=== PATIENT | female | born 1940 | race Caucasian/White ===

== ENCOUNTER 2016-10-16 13:45 | Inpatient (IN) | payer MEDICARE, MEDICAID ==
[2016-10-16] MEDS ORDERED: MORPHINE 4 MG/ML INJECTION IV ONE ×2 (13:54→15:34)
[2016-10-16] MEDS ORDERED: ONDANSETRON HCL 4 MG/2 ML VIAL IV ONE (13:54)
[2016-10-16 14:06] LABS: AUTOMATED BASOPHIL 0.3 % (0-2); AUTOMATED EOSINOPHIL 0.5 % (0-5); AUTOMATED LYMPH 10.7 % (17-44); AUTOMATED MONOCYTE 4.6 % (3-10); AUTOMATED NEUTROPHIL 83.9 % (45-76)
[2016-10-16 14:13] LABS: BLOOD UREA NITROGEN 12 MG/DL (7-17); CALCULATED OSMOLALITY 267 MOs/Kg (270-290); CHLORIDE 102 mEq/L (98-107); CPK TOTAL WITH POSSIBLE MB 79 IU/L (30-134); GLUCOSE 112 MG/DL (70-99); SODIUM LEVEL 138 mEq/L (137-146); TOTAL PROTEIN 7.2 G/DL (6.3-8.2)
--- NOTE | 2016-10-16 14:13 | EDPRACDOC ---
- General Chief Complaint: Fall Stated Complaint: FALL Time Seen by Provider: 10/16/16 13:51 Information Source: Patient - History of Present Illness Onset: ship captain HPI: PT WAS WALKING TO HER NEIGHBOR'S HOUSE ON ICE IN [place] WHEN SHE SLIPPED AND FELL. SHE C/O LEFT HIP PAIN. SHE DENIES ANY OTHER INJURIES. Pain Severity: Reports: Moderate Injuries/Pain Location: Reports: lower extremity Reason for Fall: Reports: slipped Loss of Consciousness: no loss of consciousness Associated Symptoms (Fall): Reports: denies symptoms Allergies/Adverse Reactions: Allergies aspirin Allergy (Verified 10/16/16 14:17) Dizziness Home Medications: Ambulatory Orders No Home Medications 10/16/16 ED Past Medical History - History Reviewed No Past Medical History: Yes Patient has no past medical history - Patient Medical History Psychological History: Denies: Depression Surgical History: Reports: No Significant History - Social Medical History Smoking Status: Former smoker ETOH: None Substance Abuse: None EDM Review of Systems - Review of Systems ROS Negative Except as Marked: Yes All systems reviewed and were negative except as marked Musculoskeletal: Hip - Physical Exam Constitutional: Alert (Awake), No apparent distress Oriented to: Time, Person, Place Last recorded Vital Signs: Last Vital Signs Temp 97.7 F 10/16/16 13:46 Pulse 101 10/16/16 13:46 Resp 18 10/16/16 13:46 BP 178/81 10/16/16 13:46 Pulse Ox 97 10/16/16 13:46 Oxygen Pulse Oxygen Saturation 97 O2 Device Room Air Oxygen Flow Rate Fraction of Inspired Oxygen ( FIO2) - HEENT Head: Normal ( normocephalic) Eye Exam: Normal (PERRL, EOMI, Sclera white) Oropharynx: Normal (Pharynx:Moist without exudate,Gums-no swelling) ENT EAC: Normal TMJ: Normal Nose: No Symptoms Reported (septum midline) Neck: Normal (FROM, trachea at midline) - Respiratory/Cardiovascular Respiratory: Normal - CTA (BBS clear to auscultation without adventitious sounds ) Cardiovascular: Normal (RRR without murmur, gallop or rub) - GI Auscultation: Normal (NABS) Palpation: Normal (Soft,No rebound or guarding, non distended) Tenderness: Non tender Marroquin's Sign: Negative - Musculoskeletal Back: Normal (Non-Tender) Extremities: Normal (Normal tone, Pulses 2+ No cyanosis or edema, FROM) Musculoskeletal Comment: LEFT HIP TENDERNESS - Integumentary Skin: Normal, Warm, Dry Lymphatics: Normal (no adenopathy) - Neurologic Memory Impaired: Normal Motor Function: Normal (Normal tone, Pulses 2+ No cyanosis or edema, FROM) Cranial Nerve: Normal (CN II-X11 intact sensation, strength 5/5) Cerebellar: Normal Mood Description: Normal Perception: Normal - Results 10/16/16 13:50 10/16/16 13:50 WBC 11.4 xk/uL (3.8-10.8) H 10/16/16 13:50 RBC 4.41 xM/uL (4.20-5.40) 10/16/16 13:50 Hgb 13.2 g/dL (12.0-16.0) 10/16/16 13:50 Hct 39.9 % (36-47) 10/16/16 13:50 MCV 90 fL (81-99) 10/16/16 13:50 MCH 30.0 pg (27-32) 10/16/16 13:50 MCHC 33.2 g/dl (33-36) 10/16/16 13:50 RDW 13.5 % (11.5-14.5) 10/16/16 13:50 Plt Count 210 xk/uL (130-400) 10/16/16 13:50 MPV 9.0 fL (7.4-10.4) 10/16/16 13:50 Neut % (Auto) 83.9 % (45-76) H 10/16/16 13:50 Lymph % (Auto) 10.7 % (17-44) L 10/16/16 13:50 [place] % (Auto) 4.6 % (3-10) 10/16/16 13:50 Eos % (Auto) 0.5 % (0-5) 10/16/16 13:50 Baso % (Auto) 0.3 % (0-2) 10/16/16 13:50 Absolute Neuts (auto) 9.46 xk/uL (1.7-8.2) H 10/16/16 13:50 Absolute Lymphs (auto) 1.14 xk/uL (0.65-4.75) 10/16/16 13:50 Lab Results 10/16/16 13:50 WBC 11.4 H RBC 4.41 Hgb 13.2 Hct 39.9 MCV 90 MCH 30.0 MCHC 33.2 RDW 13.5 Plt Count 210 MPV 9.0 Neut % (Auto) 83.9 H Lymph % (Auto) 10.7 L [place] % (Auto) 4.6 Eos % (Auto) 0.5 Baso % (Auto) 0.3 Absolute Neuts (auto) 9.46 H Absolute Lymphs (auto) 1.14 - EKG EKG #1 EKG Time: 13:46 -: Yes EKG interpreted by me Rate: bpm: 96 [place]: Normal Rhythm: NSR Block: None Hypertrophy: None ST: Normal Comparison: 07/25/09 - Diagnostic Imaging Hip Image interpreted by: Radiologist Displaced left femoral neck fracture. Pelvis Image interpreted by: Radiologist Displaced left femoral neck fracture. Chest Image interpreted by: Radiologist There are chronic bronchitic changes. There is no evidence of acute thoracic trauma. If the patient's chest wall discomfort warrants further evaluation, a rib series would be a useful next imaging step. - Departure Yes I personally saw and evaluated the patient. Disposition: Admit IP To This Hospital Condition: Fair Final Diagnosis: Accidental fall, Left displaced femoral neck fracture Education/Counseling Given To: Patient Education/Counseling Given Regarding: Diagnosis, Treatment, Follow Up Decision to Admit Time: 15:01 Decision to admit date: 10/16/16 Decision to admit: from ED - Physician Consulted Hospitalist Provider Called: Zohaib [facility] Provider Called: John Delgadillo
[2016-10-16 14:17] LABS: PT-INR 1.1
[2016-10-16 14:31] LABS: LEUKOCYTES/URINE NEG (NEGATIVE); NITRITE/URINE NEG (NEGATIVE); RBC/URINE 0-2 (0-5); URINE OCCULT BLOOD 1+ (NEG/TRACE); WBC/URINE 0-2 (0-5)
--- NOTE | 2016-10-16 14:43 | DIRPT ---
CLINICAL DATA: Fell today and injured left hip. EXAM: BILATERAL HIP (WITH PELVIS) 3-4 VIEWS; LEFT FEMUR - 2 VIEW COMPARISON: None. FINDINGS: Pelvis/hips: There is a displaced left femoral neck fracture. The right hip is normal. The pubic symphysis and SI joints are intact. No pelvic fractures. Left femur: No femoral shaft fracture is identified. IMPRESSION: Displaced left femoral neck fracture. Electronically Signed By: Rae Portillo M.D. On: 10/16/2016 14:41
--- NOTE | 2016-10-16 14:43 | DIRPT ---
CLINICAL DATA: Status post fall on slippery surface today striking the left side EXAM: CHEST 1 VIEW COMPARISON: None in PACs FINDINGS: The lungs are well-expanded. There is no focal infiltrate. There is no pleural effusion or pneumothorax. The interstitial markings are mildly prominent bilaterally. The heart and pulmonary vascularity are normal. The mediastinum is normal in width. The observed portions of the bony thorax exhibit no acute abnormalities. IMPRESSION: There are chronic bronchitic changes. There is no evidence of acute thoracic trauma. If the patient's chest wall discomfort warrants further evaluation, a rib series would be a useful next imaging step. Electronically Signed By: Gautam Jane M.D. On: 10/16/2016 14:41
[2016-10-16] MEDS ORDERED: ONDANSETRON HCL 4 MG/2 ML VIAL IV PRN (16:02)
[2016-10-16] MEDS ORDERED: Docusate Sodium 100 MG CAP PO PRN (16:02)
[2016-10-16] MEDS ORDERED: ZOLPIDEM TARTRATE 5 MG TAB PO PRN (16:02)
[2016-10-16] MEDS ORDERED: ACETAMINOPHEN 650 MG SUPP PR PRN (16:02)
[2016-10-16] MEDS ORDERED: MAGNESIUM HYDROXIDE 30 ML BOTTLE PO PRN (16:02)
[2016-10-16] MEDS ORDERED: ACETAMINOPHEN 325 MG/TAB TABLET PO PRN (16:02)
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
[2016-10-16] MEDS ORDERED: MORPHINE 2 MG/ML INJECTION IV PRN (16:06)
--- NOTE | 2016-10-16 18:36 | PCM.ORTHCO ---
Consultation Date: 10/16/16 Requesting Physician: Joel [facility] Specialist: Vahid Tom Reason for Consult: Fracture (Left hip) - History of Present Illness 76-year-old otherwise healthy active female who ambulates without assistance presents status post mechanical fall after slipping on ice this afternoon. Patient was attempting to walk to her neighbor's when she slipped on ice falling on her left hip. Patient was unable to ambulate after injury and was brought to the ER. X-rays reveal left hip femoral neck fracture with displacement. Medicine was asked for admission and Orthopedics was consulted for surgical management. Patient is resting comfortably at bedside with mild left hip pain. She denies any loss of consciousness. She denies any fevers, chills, numbness, or tingling. Chief Complaint: left hip fracture - Past Medical and Surgical History Cardiac History: Reports: No Significant History Respiratory History: Reports: No Significant History GI/ History: Reports: No Significant History Systemic History: Reports: No Significant History Musculoskeletal History: Reports: No Significant History Psychological History: Reports: No Significant History. Denies: Depression Neurological History: Reports: No Significant History Past Surgical History: Reports: No Significant History Allergies aspirin Allergy (Verified 10/16/16 14:17) Dizziness Home Medications No Home Medications 10/16/16 - Social History Smoking Status: Former smoker - Family History Reports: No Significant History - Review of Systems Musculoskeletal:: Joint Pain (left hip) - Physical Exam Vital Signs: Initial Vitals Temperature 97.7 F 10/16/16 13:46 Pulse Rate 101 10/16/16 13:46 Respiratory Rate 18 10/16/16 13:46 Blood Pressure 178/81 10/16/16 13:46 Pulse Oxygen Saturation 97 10/16/16 13:46 Constitutional: No apparent distress, Alert, Well appearing Oriented to: Time, Person, Place - HEENT Head: Normal Oropharynx: Normal Nose: No Symptoms Reported - Musculoskeletal Extremities: Pedal Pulse Left hip: Mild shortening and external rotation of the left lower extremity with intact pedal pulses. Sensation intact to light touch throughout left lower extremity including saphenous, sural, femoral, and peroneal. Active range of motion of 1st through 5th digits with plantar flexion dorsiflexion intact at the ankle. No tenderness in the left lower extremity below the knee with no knee effusion. Tenderness in the left lateral hip and groin area. Pain with log roll. Right lower extremity without deformity and full range of motion of extremity. - Lab Results Laboratory Results - last 24 hr 10/16/16 10/16/16 10/16/16 13:50 13:50 13:50 WBC 11.4 H RBC 4.41 Hgb 13.2 Hct 39.9 MCV 90 MCH 30.0 MCHC 33.2 RDW 13.5 Plt Count 210 MPV 9.0 Neut % (Auto) 83.9 H Lymph % (Auto) 10.7 L [place] % (Auto) 4.6 Eos % (Auto) 0.5 Baso % (Auto) 0.3 Absolute Neuts (auto) 9.46 H Absolute Lymphs (auto) 1.14 PT INR APTT Sodium 138 Potassium 3.7 Chloride 102 Carbon Dioxide 27 Anion Gap 13 BUN 12 Creatinine 0.50 L Estimated GFR (MDRD) > 60 Glucose 112 H Calculated Osmolality 267 L Calcium 9.0 Total Bilirubin 0.5 AST 30 ALT 36 Alkaline Phosphatase 59 Creatine Kinase 79 Troponin I < 0.01 Total Protein 7.2 Albumin 4.2 Urine Color Urine Clarity Urine pH Ur Specific [place] Urine Protein Urine Glucose (UA) Urine Ketones Urine Occult Blood Urine Nitrite Urine Bilirubin Urine Urobilinogen Ur Leukocyte Esterase Urine RBC Urine WBC Ur Epithelial Cells Urine Bacteria Urine Mucus Blood Type A POSITIVE Antibody Screen Negative 10/16/16 10/16/16 10/16/16 13:50 14:05 17:55 WBC RBC Hgb Hct MCV MCH MCHC RDW Plt Count MPV Neut % (Auto) Lymph % (Auto) [place] % (Auto) Eos % (Auto) Baso % (Auto) Absolute Neuts (auto) Absolute Lymphs (auto) PT 10.8 INR 1.1 APTT 23.0 Sodium Potassium Chloride Carbon Dioxide Anion Gap BUN Creatinine Estimated GFR (MDRD) Glucose Calculated Osmolality Calcium Total Bilirubin AST ALT Alkaline Phosphatase Creatine Kinase Troponin I < 0.01 Total Protein Albumin Urine Color Yellow Urine Clarity Clear Urine pH 6.0 Ur Specific [place] 1.010 Urine Protein Neg Urine Glucose (UA) Neg Urine Ketones Neg Urine Occult Blood 1+ H Urine Nitrite Neg Urine Bilirubin Neg Urine Urobilinogen <2.0 Ur Leukocyte Esterase Neg Urine RBC 0-2 Urine WBC 0-2 Ur Epithelial Cells 2+ Urine Bacteria 1+ H Urine Mucus Occ Blood Type Antibody Screen - Diagnostic Findings Left hip and femur x-rays were reviewed revealing displaced left femoral neck fracture. - Assessment/Plan (1) Left displaced femoral neck fracture S72.002A - FRACTURE OF UNSP PART OF NECK OF LEFT FEMUR, INIT Acute Present on Admission: Yes Case Care Discussed with: Patient, Family Plan: 76-year-old household ambulator presents status post mechanical fall today after slipping on ice. Patient sustained a left femoral neck fracture with displacement. Medicine admitted patient with Dr. Delgadillo consult of orthopedic surgical management. Plan per Dr. Delgadillo will be left hip hemiarthroplasty tomorrow. Patient will be NPO after midnight and consented for left hip hemiarthroplasty. Risks were reviewed with patient and family member at bedside including risk for nerve or vessel injury, DVT, anesthesia, , infection, and dislocation. No guarantees were stated or implied patient agrees with the above plan. Continue pain control, bed rest, and ice to left hip.
[2016-10-16] MEDS ORDERED: Vaccine Screening Complete SCH (19:00)
[2016-10-16] MEDS: NS/KCl 20 mEq 1,000 ML IV SCH (21:04)
[2016-10-17] MEDS: NS/KCl 20 mEq 1,000 ML IV SCH ×4 (03:42→20:46)
[2016-10-17] MEDS ORDERED: CEFAZOLIN 1 GM VIAL IV ONE (07:00)
[2016-10-17 07:21] LABS: MPV 8.9 fL (7.4-10.4)
[2016-10-17 07:37] LABS: BLOOD UREA NITROGEN 11 MG/DL (7-17); CALCIUM 8.6 MG/DL (8.4-10.2); CALCULATED OSMOLALITY 268 MOs/Kg (270-290); CHLORIDE 104 mEq/L (98-107); GLUCOSE 113 MG/DL (70-99); SODIUM LEVEL 139 mEq/L (137-146)
[2016-10-17] MEDS ORDERED: KETOROLAC TROMETH 30 MG/ML VIAL IM ONE (10:00)
[2016-10-17] MEDS ORDERED: PROPOFOL 200 MG/20 ML VIAL IV ONE (10:00)
[2016-10-17] MEDS ORDERED: MIDAZOLAM 2 MG/2 ML VIAL IV ONE (10:00)
[2016-10-17] MEDS ORDERED: LIDOCAINE 4% 5 ML AMPULE NEB ONE (10:00)
[2016-10-17] MEDS ORDERED: DEXAMETHASONE 4 MG/ML VIAL IV ONE (10:00)
[2016-10-17] MEDS ORDERED: ONDANSETRON HCL 4 MG/2 ML VIAL IV ONE (10:00)
[2016-10-17] MEDS ORDERED: MORPHINE 10 MG/ML INJECTION IM ONE (10:00)
[2016-10-17] MEDS ORDERED: FENTANYL 100 MCG/2 ML VIAL IV ONE (10:00)
[2016-10-17] MEDS ORDERED: FENTANYL 100 MCG/2 ML VIAL IV PRN ×2 (11:36)
[2016-10-17] MEDS ORDERED: PROMETHAZINE 25 MG/ML VIAL IV PRN (11:36)
[2016-10-17] MEDS ORDERED: ONDANSETRON HCL 4 MG ODT TAB PO PRN (11:36)
[2016-10-17] MEDS ORDERED: ONDANSETRON HCL 4 MG/2 ML VIAL IV PRN (11:36)
[2016-10-17] MEDS ORDERED: MEPERIDINE 25 MG/ML TUBEX IV PRN (11:36)
[2016-10-17] MEDS ORDERED: hydrALAZINE 20 MG/ML VIAL IV PRN (11:36)
[2016-10-17] MEDS ORDERED: HYDROmorphone 1 MG INJECTION IV PRN ×2 (11:36)
[2016-10-17] MEDS ORDERED: LABETALOL 20 MG/4 ML SYRINGE IV PRN (11:36)
--- NOTE | 2016-10-17 11:37 | SC.ANESPOS ---
Post-Anesthesia Note LOC: [place] [facility] Calling Post-Anesthesia Assessment: Awake, Returned to Baseline, Hemodynamically Stable , Pain Control Adequate Phase I & II Recovery Complete: Yes Apparent Anesthesia Complication: No : N - Vital Signs Blood Pressure: 139/64 Pulse: 86 Resp Rate: 18 O2 Sat: 93 Temp: 98.5 F
--- NOTE | 2016-10-17 11:53 | HIM.ANES ---
Anesthesia Evaluation & Plan - Focused Review of Systems No Past Medical History: Yes Patient has no past medical history Cardiac History: No: Hx Cardiac Disorders HEENT: Yes: Hx Hearing Impairment Gastrointestinal: No: Hx Gastrointestinal Disorders Neurological/Musculoskeletal: No: Hx Neurological Disorders Psychological: No Hx Depression, No Hx Mental/Emotional Disorders Blood/Autoimmune: No: Hx AIDS, Hx Hepatitis (type) Smoking Status: Former smoker Past Social History: Denies: Alcohol Use Alcohol use: None Hx Stress Test (date): No Hx Echocardiogram (date): No Hx Chest Xray (date): Yes - Focused Physical Exam NPO since: Mallampati: Class II Thyromental Distance: Greater than 3 Neck: Full Range of Motion Dental: Edentulous, Other (Irregular tooth stumps remain) Cardiovascular/Chest: Normal Respiratory: Lungs clear Any problems with anesthesia, including nausea and vomiting?: No Any relatives with a history of Malignant Hyperthermia?: No Does patient have a history of Malignant Hyperthermia?: No Beta Tan given (if appropriate): N/A Other: Problem List Problem Status Onset Accidental fall Acute Hypertension Acute Left displaced femoral neck fracture Acute Left hip pain Acute PT/PTT/INR/ PT 10.8 SEC (9.2-11.2) 10/16/16 13:50 INR 1.1 10/16/16 13:50 APTT 23.0 SEC (22-35) 10/16/16 13:50 CBC/BMP/Other 10/17/16 06:41 10/17/16 06:41 Allergies Allergy/AdvReac Type Severity Reaction Status Date / Time aspirin Allergy Dizziness Verified 10/16/16 14:17 Home Medications Medication Instructions Recorded Last Taken Type No Home Medications 10/16/16 Unknown History Height and Weight Patient's height 5 ft 5 in Patient's weight 118 lb 6.4 oz Weight (Calculated Kilograms) 53.705 BMI 19.7 Vital Signs Temperature 98.5 F 10/17/16 11:37 Pulse Rate 86 10/17/16 11:37 Respiratory Rate 18 10/17/16 11:37 Blood Pressure 139/64 10/17/16 11:37 Pulse Oxygen Saturation 93 10/17/16 11:37 - Anesthetic Plan Anesthesia Type: General ASA Class: 2 -: I have examined this patient and reviewed the medical record. The patient has been assessed prior to anesthesia. Risks and benefits of anesthesia and anesthetic technique options have been discussed and all questions answered. The patient accepts the risk and desires me to proceed with the planned anesthetic.
[2016-10-17] MEDS ORDERED: BUPIVACAINE 0.5% 30 ML VIAL ONE (12:17)
[2016-10-17] MEDS ORDERED: LIDOCAINE 1% 30 ML VIAL (PRESERVATIVE FREE) ONE (12:17)
[2016-10-17] MEDS: VANCOMYCIN 1,000 MG VIAL INSTILL ONE ×2 (13:15→16:12)
--- NOTE | 2016-10-17 13:24 | HIMOPRPT ---
DATE OF PROCEDURE: 10/17/16 PREOPERATIVE DIAGNOSIS: Displaced femoral neck fracture of left hip. POSTOPERATIVE DIAGNOSIS: Displaced femoral neck left hip. OPERATION: Left hip hemiarthroplasty. SURGEON: John Delgadillo MD DRAFTER (CAD) ELECTRICAL: MIGUEL Parada ANESTHESIA: General endotracheal anesthesia DRAINS: None. COMPLICATIONS: None. IMPLANTS: Synthetic Substitute Metal Janie - Titanium Stem non-cemented size 7 - Head Stainless Steel bipolar 47 mm, -4 mm diameter DISPOSITION: Stable to recovery. ESTIMATED BLOOD LOSS: 100 mL. BRIEF HISTORY: The patient is a 76 years old F with a history of fall. Patient sustained a displaced left femoral neck fracture. Left hip hemiarthroplasty was recommended. Patient understood that the risks involved in surgery include but are not limited to infection, damage to the nerve, blood vessel, recurrent dislocation, need for further surgery, continued pain, implant failure, DVT, pulmonary embolism, stroke and even . Patient was also explained the requirement of adherence to postoperative protocol. KEELY RAMIREZ showed understanding and willingness to proceed. Patient volunteered an informed consent. PROCEDURE IN DETAIL: KEELY RAMIREZ was identified in the preop area. The surgical side was confirmed with the patient and marked on the skin. Patient was then returned back into the operating room. Patient was placed supine on the operating table. Spinal anesthesia was administered. Proper timeout was performed confirming the identity of the patient as well as the site of the surgery. 2 g of IV Ancef were given preoperatively within 30 min. of the surgical incision. All the bony prominences were adequately padded. The surgical area was sealed off with plastic drapes. The surgical area was scrubbed with alcohol and Betadine and finally prepped with ChloraPrep. [place] full body gowns were used. Direct anterior approach was used. This surgical incision lateral and distal to the anterior superior iliac spine was made extending distally 4 inches.Skin and the fascia was incised. Bovie was used for deeper dissection. Tensor fascia anila was identified . The fascia of the tensor fascia anila was incised. The muscle belly of TFL was retracted laterally. The fascia between the sartorius and TFL was incised. Branches of the circumflex femoral vessels were cauterized. Curved Cobra retractors were placed superior and inferior to the neck. An interval was then created between the anterior hip capsule and hip flexors. An anterior cobra retractor was placed above the pelvic brim. A Tshaped capsular incision was made in the anterior capsule with the base of the T laterally along the intertrochanteric line. Anterior capsulectomy was performed. The cyst. An inferior retractors were repositioned inside the capsule. A napkin ringed osteotomy was made in the femoral neck. The femoral head was retrieved and measured 47 mm . We then proceeded with the preparation of the proximal femur for the implantation of the femoral stem. Posterior superior capsules was resected for release of proximal femur. The operated leg was abducted assisted with the break in the table. External rotation of the extremity was utilized. Proximal femur was delivered laterally and proximally. Progressive reaming of the femoral canal was performed up to size 7 . We then trialed with a different size neck options. The hip was carried through full flexion, adduction and internal rotation without any dislocation. Bilateral lower extremity lengths as palpated from anterior superior iliac spine to the medial malleolus were comparable bilaterally. We found adequate stability with standard size neck, 47 mm bipolar head. The trial components were removed. The wound was copiously irrigated with normal saline. We implanted a size 7 noncemented stem, with 47,-4 mm bipolar head. Hip was again carried through range of motion and stability was satisfactory in flexion, adduction and internal and external rotation. The hip joint was irrigated with copious amount of sterile saline solution. Also prior to closure of the capsule was injected with Exparel, which was also injected into the surrounding soft tissues. The fascia of the tensor fascia anila was closed with 2-0 Vicryl. The subcutaneous tissue was reapproximated with Vicryl and skin was closed with mackenzie. The patient was extubated and taken to the recovery room in stable condition. KEELY tolerated the procedure well without immediate complications. DISPOSITION: Patient would be admitted to the orthopedic service. Patient will be weightbearing as tolerated on bilateral lower extremities. Patient will be started on aspirin 325 mg twice daily for DVT prophylaxis. Patient will have mechanical prophylaxis with intermittent compression devices while in bed.
[2016-10-17] MEDS ORDERED: CEFAZOLIN 1 GM in D5W 100 ML IV SCH (14:00)
[2016-10-17] MEDS: Cefazolin 1gm/50 ml D5W 1 GM/50 ML RTU IV SCH ×2 (14:52→20:46)
--- NOTE | 2016-10-17 15:55 | GENMEDPROG ---
Chief Complaint: Feels well. Sitting up in bed with no complaints. Denies pain at present. Tolerated surgery without difficulty. Notes Reviewed: Yes Events from last night noted and discussed with Clinical Staff Current Medication List: Reviewed Currently: Denies: Cough, Wheezing, GAGNON, SOB, Nausea and Vomiting, Abdominal Pain, Chest Pain - Physical Examination Vital Signs and I&O: Last Vital Signs Temp 99.8 F 10/17/16 13:34 Pulse 83 10/17/16 15:05 Resp 18 10/17/16 15:05 BP 116/73 10/17/16 15:05 Pulse Ox 92 10/17/16 15:05 Oxygen Pulse Oxygen Saturation 92 O2 Device Room Air Oxygen Flow Rate 6 Fraction of Inspired Oxygen ( 100 FIO2) Intake & Output 10/14/16 10/15/16 10/16/16 10/17/16 23:59 23:59 23:59 23:59 Intake Total 196 902 Output Total 250 1250 Balance -54 -348 Patient's weight 53.705 kg General: Alert, Oriented x3, Cooperative, No acute distress, Well appearing, Well nourished HEENT: Normal, PERRLA, EOMI, Anicteric Sclera Neck: Non-tender, Full range of motion, Normal Trachea alignment, Normal inspection. negative: JVD Lymphatics: Normal (no adenopathy). negative: Adenopathy Respiratory: Normal - CTA (BBS clear to auscultation without adventitious sounds ) Cardiovascular: Regular rate and rhythm, No Gallops,Rubs/Murmurs GI: Normal bowel sounds, Soft, Non tender, No hepatospenomegaly Extremities/Musculoskeletal: Normal pulses. negative: Tenderness, Swelling, Edema Skin: Warm,Dry and Intact, No rashes, No breakdown Neurological: Normal speech, Strength at 5/5 X4 ext, Normal tone, Cranial nerves 3-12 NL Psych/Mental Status: Appropriate, Normal Affect, Cooperative Lab/DI/Studies Reviewed: Laboratory Results - last 24 hr 10/16/16 10/16/16 10/16/16 13:50 17:55 21:25 WBC RBC Hgb Hct MCV MCH MCHC RDW Plt Count MPV Sodium Potassium Chloride Carbon Dioxide Anion Gap BUN Creatinine Estimated GFR (MDRD) Glucose Calculated Osmolality Calcium Troponin I < 0.01 < 0.01 Vitamin D 25-Hydroxy 17.3 L 10/17/16 10/17/16 06:41 06:41 WBC 9.8 RBC 4.02 L Hgb 12.2 Hct 36.6 MCV 91 MCH 30.3 MCHC 33.3 RDW 13.7 Plt Count 168 MPV 8.9 Sodium 139 Potassium 4.2 Chloride 104 Carbon Dioxide 28 Anion Gap 11 BUN 11 Creatinine 0.50 L Estimated GFR (MDRD) > 60 Glucose 113 H Calculated Osmolality 268 L Calcium 8.6 Troponin I Vitamin D 25-Hydroxy - Assessment (1) Left displaced femoral neck fracture Acute S72.002A - FRACTURE OF UNSP PART OF NECK OF LEFT FEMUR, INIT Comment/ Plan: Doing well postop. Minimal pain currently. No chest pain or shortness of breath. Physical therapy and increase activity as tolerated. Pain control with morphine. (2) Accidental fall Acute W19.XXXA - UNSPECIFIED FALL, INITIAL ENCOUNTER Comment/Plan: Slipped on the ice while wearing Crocs (3) Hypertension Acute I10 - ESSENTIAL (PRIMARY) HYPERTENSION Qualifiers: Hypertension type: essential hypertension Qualified Code(s): I10 - Essential (primary) hypertension Comment/Plan: Likely related to pain. P.r.n. analgesics and monitor. Has been improving here in the emergency room (4) Left hip pain Acute M25.552 - PAIN IN LEFT HIP Comment/Plan: P.r.n. morphine. Case Care Discussed with: Patient, Nursing Staff, Resource Management
[2016-10-17] MEDS: ENOXAPARIN 40 MG/0.4 ML PFS SQ SCH (17:35)
[2016-10-18] MEDS: NS/KCl 20 mEq 1,000 ML IV SCH ×3 (02:26→13:30)
[2016-10-18] MEDS: OXYCODONE HCL 5 MG TABLET PO PRN ×4 (03:49→20:15)
[2016-10-18] MEDS: Cefazolin 1gm/50 ml D5W 1 GM/50 ML RTU IV SCH (04:36)
--- NOTE | 2016-10-18 06:20 | PCM.ORTHBL ---
- Subjective Post Op Day: 1 Daily Assessment - Patient: Reports: No new complaints, Feels better, Pain is less, Tolerating Regular Diet, Voiding without difficulty, Afebrile, Ambulating with Physical Therapist, Other (Denies chest pain). Denies: Difficulty Swallowing, Shortness of breath, Nausea, Vomiting - Objective / Physical Exam Vital Signs: Temperature: 98.5 F (10/18/16 03:37) HR: 86 (10/18/16 03:37)RR: 18 (10/18/16 03: 37) BP: 139/64 (10/18/16 03:37)Pulse Ox: 93 (10/18/16 03:37) General: Alert, Oriented x3, Cooperative, No acute distress, Well appearing Musculoskeletal / Extremities: 2 plus Dorsalis Pedis Pulse, Dressing Clean/Dry/ Intact. negative: Tenderness (no calf tenderness) Neurological: Positive Sensation First Dorsal Web Space, Sensation to light touch intact, Extensor Hallicus Longus Intact, Flexor Hallicus Longus Intact, Dorsiflexion Intact, Plantarflexion Intact - Assessment and Plan (1) Left displaced femoral neck fracture Acute S72.002A - FRACTURE OF UNSP PART OF NECK OF LEFT FEMUR, INIT Present on Admission: Yes Plan: POD#1 s/p left hip hemiarthroplasty PT/OT/WBAT TEDS/SCDS/Lovenox for 14 days post-op for DVT prophylaxis Continue pain management D/c planning
[2016-10-18 07:01] VITALS: BMI 20.1
[2016-10-18 07:47] LABS: MPV 9.4 fL (7.4-10.4)
[2016-10-18 08:19] LABS: BLOOD UREA NITROGEN 10 MG/DL (7-17); CALCIUM 8.2 MG/DL (8.4-10.2); CALCULATED OSMOLALITY 272 MOs/Kg (270-290); CHLORIDE 110 mEq/L (98-107); GLUCOSE 95 MG/DL (70-99); SODIUM LEVEL 142 mEq/L (137-146)
--- NOTE | 2016-10-18 15:07 | GENMEDPROG ---
Chief Complaint: Doing very well. No complaints. No chest pain or shortness of breath. Mild to moderate hip pain Notes Reviewed: Yes Events from last night noted and discussed with Clinical Staff Current Medication List: Reviewed Currently: Denies: Cough, Wheezing, GAGNON, SOB, Nausea and Vomiting, Abdominal Pain, Chest Pain - Physical Examination Vital Signs and I&O: Last Vital Signs Temp 99.6 F 10/18/16 14:00 Pulse 97 10/18/16 14:00 Resp 18 10/18/16 14:00 BP 152/64 10/18/16 14:00 Pulse Ox 94 10/18/16 14:00 Oxygen Pulse Oxygen Saturation 94 O2 Device Room Air Oxygen Flow Rate 6 Fraction of Inspired Oxygen ( 100 FIO2) Intake & Output 10/15/16 10/16/16 10/17/16 10/18/16 23:59 23:59 23:59 23:59 Intake Total 196 1102 1957 Output Total 250 1250 1350 Balance -54 -148 607 Patient's weight 53.705 kg 54.941 kg General: Alert, Oriented x3, Cooperative, No acute distress, Well appearing HEENT: Normal, PERRLA, EOMI, Anicteric Sclera Neck: Non-tender, Full range of motion, Normal Trachea alignment, Normal inspection. negative: JVD Lymphatics: Normal. negative: Adenopathy Respiratory: Normal - CTA Cardiovascular: Regular rate and rhythm, No Gallops,Rubs/Murmurs GI: Normal bowel sounds, Soft, Non tender, No hepatospenomegaly Extremities/Musculoskeletal: Normal pulses, Tenderness Skin: Warm,Dry and Intact, No rashes, No breakdown, No significant lesion Neurological: Normal speech, Strength at 5/5 X4 ext, Normal tone, Other (Right exotropia) Psych/Mental Status: Appropriate, Normal Affect, Cooperative Lab/DI/Studies Reviewed: Laboratory Results - last 24 hr 10/18/16 10/18/16 06:56 06:56 WBC 8.8 RBC 3.23 L Hgb 10.0 L D Hct 29.3 L MCV 91 MCH 30.8 MCHC 34.0 RDW 13.9 Plt Count 153 MPV 9.4 Sodium 142 Potassium 4.3 Chloride 110 H Carbon Dioxide 25 Anion Gap 11 BUN 10 Creatinine 0.60 Estimated GFR (MDRD) > 60 Glucose 95 Calculated Osmolality 272 Calcium 8.2 L - Assessment (1) Left displaced femoral neck fracture Acute S72.002A - FRACTURE OF UNSP PART OF NECK OF LEFT FEMUR, INIT Comment/ Plan: Doing very well. Continue physical therapy. Increase activity and ambulate. group home facility placement 1-2 days if continues to remain stable (2) Accidental fall Acute W19.XXXA - UNSPECIFIED FALL, INITIAL ENCOUNTER Comment/Plan: Slipped on the ice while wearing Crocs (3) Hypertension Acute I10 - ESSENTIAL (PRIMARY) HYPERTENSION Qualifiers: Hypertension type: essential hypertension Qualified Code(s): I10 - Essential (primary) hypertension Comment/Plan: Likely related to pain. P.r.n. analgesics and monitor. Has been improving here in the emergency room (4) Left hip pain Acute M25.552 - PAIN IN LEFT HIP Comment/Plan: P.r.n. morphine. Case Care Discussed with: Patient, Occupational Therapy, Physical Therapy, Resource Management, Respiratory Therapy, Neurology Hospitalist
[2016-10-18] MEDS: ENOXAPARIN 40 MG/0.4 ML PFS SQ SCH (17:16)
[2016-10-19] MEDS: OXYCODONE HCL 5 MG TABLET PO PRN ×3 (02:22→10:09)
[2016-10-19 05:53] LABS: MPV 9.2 fL (7.4-10.4)
[2016-10-19 06:03] VITALS: BP 135/64; PULSE 108; TEMP 99.8
--- NOTE | 2016-10-19 06:57 | PCM.ORTHBL ---
- Subjective Post Op Day: 2 Daily Assessment - Patient: Reports: No new complaints, Awake Alert Oriented x4 , Still having pain, Pain is less, Tolerating Regular Diet, Afebrile, Other ( denies chest pain). Denies: Difficulty Swallowing, Shortness of breath, Nausea , Vomiting - Objective / Physical Exam Vital Signs: Temperature: 99.8 F (10/19/16 06:00) HR: 108 (10/19/16 06:00)RR: 18 (10/19/16 06 :00) BP: 135/64 (10/19/16 06:00)Pulse Ox: 96 (10/19/16 06:00) General: Alert, Oriented x3, Cooperative, No acute distress, Well appearing Musculoskeletal / Extremities: 2 plus Dorsalis Pedis Pulse, Dressing Clean/Dry/ Intact. negative: Tenderness (no calf tenderness. She does have tenderness to left hip. Swollen but soft.) Neurological: Positive Sensation First Dorsal Web Space, Sensation to light touch intact, Extensor Hallicus Longus Intact, Flexor Hallicus Longus Intact, Dorsiflexion Intact, Plantarflexion Intact Laboratory/Diagnostics Reviewed: 10/19/16 05:25 10/18/16 06:56 - Assessment and Plan (1) Left displaced femoral neck fracture Acute S72.002A - FRACTURE OF UNSP PART OF NECK OF LEFT FEMUR, INIT Present on Admission: Yes Plan: s/p left hip hemiarthroplasty PT/OT/WBAT TEDS/SCDS/Lovenox SQ QD for 14 days post-op for DVT prophylaxis Continue pain management D/C planning. Plan for [facility] once approved and if medically stable
--- NOTE | 2016-10-19 07:00 | PCM.DCS92 ---
- Final/Secondary Discharge Diagnosis (1) Left displaced femoral neck fracture Acute S72.002A - FRACTURE OF UNSP PART OF NECK OF LEFT FEMUR, INIT Present on Admission: Yes Discharge Condition: Fair Cognitive Discharge Status: Unimpaired Fuctional Discharge Status: Walker Assistance, Recent lower extremety joint replacement, Post-op Weakness Physician Follow up/Referrals: John Delgadillo MD [Staff Physician] - Two Weeks (The facility will schedule) Nancy Church PA [Primary Care Provider] - Three Weeks (The facility will schedule ) New Prescriptions: Docusate-Senna Concentrate [Senokot S or Sandra Colace] 1 each PO QHS #30 tab Enoxaparin Sodium [Lovenox] 40 mg SQ DAILY #12 each Oxycodone Immediate Release [Oxycodone Immediate Release (OxyIR)] 5 mg PO Q4H PRN #40 tab PRN Reason: Pain Diet at Discharge: As Tolerated Activity: As Tolerated, No Heavy Lifting, No Driving Call Office For: Worsening Symptoms, Wound is Draining Pus, Fever over 101 F, Fever over 100.5, Wound is Painful, Wound is Red, Weight Gain (see below), Pain Uncontrolled By Meds, Other (See Details) Discontinue use of:: Alcohol, All Illegal Substances, All Types of Tobacco - DC Summary Notes Hospital Course Note:: Discharge summary on patient named KEELY RAMIREZ admitted to [facility] on 10/16/16 by Joel Bone MD. Date of discharge is [10/19/16]. Afebrile. Hospital course and surgery uneventful. Progressing with PT. WBAT. Continue pain management. Lovenox for 14 days post-op for DVT prophylaxis. Aquacel dressing to be removed on POD#7, then daily dressing changes as needed. Discharge to SNF. To follow-up in office in 2 weeks or earlier as needed. Wound Care Surgical Site: Yes Site Description (if applicable): left hip May Shower Starting:: upon discharge Dressing/Site Care (if applicable): Aquacel dressing to be removed on POD#7, then daily dry dressing changes as needed. Medical Equipment (Order must still be written on paper): Walker Remove Transdermal Scopalamine patch if present: YES Medication Instructions: Take Stool Softener Continue Ice Packs/Ice Machine to Operative Area: Yes Activity as Tolerated: Yes Weight Bearing: Full Current Dressing: Aquacel Dressing Care: Keep Wound Clean & Dry, Shower with Tegaderm Dsg, No Tub Baths, Other Instructions Below (Aquacel dressing to be removed on POD#7, then daily dry dressing changes as needed.) - Physical Exam Vital Signs: Initial Vitals Temperature 97.7 F 10/16/16 13:46 Pulse Rate 101 10/16/16 13:46 Respiratory Rate 18 10/16/16 13:46 Blood Pressure 178/81 10/16/16 13:46 Pulse Oxygen Saturation 97 10/16/16 13:46 Constitutional: No apparent distress, Alert, Well appearing Oriented to: Time, Person, Place - HEENT Head: Normal - Musculoskeletal Extremities: Pedal Pulse, Other (dressing clean, dry, intact). negative: Calf Tenderness - Neurologic Memory Impaired: Normal Motor Function: Normal Cranial Nerve: Normal Cerebellar: Normal Mood Description: Normal Thought: Coherent Perception: Normal
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
[2016-10-19] MEDS: ENOXAPARIN 40 MG/0.4 ML PFS SQ SCH (16:40)
== END 2016-10-19 17:15 | DRG 470 ==
LOC: ED 13:45 → MPS3 16:09
PROVIDERS: ADMIT Hospitalist; ATTEND Internal Medicine
PROC: 0SRS01A Replacement of Left Hip Joint, Femoral Surface with Metal Synthetic Substitute, Uncemented, Open Approach (ICD-10-PCS; principal; 2016-10-17 12:00)
DX: S72.002A Fracture of unspecified part of neck of left femur, initial encounter for closed fracture (principal); F03.90 Unspecified dementia, unspecified severity, without behavioral disturbance, psychotic disturbance, mood disturbance, and anxiety; I10 Essential (primary) hypertension; W00.0XXA Fall on same level due to ice and snow, initial encounter; Y93.9 Activity, unspecified; Z88.8 Allergy status to other drugs, medicaments and biological substances; Z87.891 Personal history of nicotine dependence
CPT/HCPCS: 36415; 71010; 73521; 80048; 80053; 81001; 82306; 82550; 84484; 85025; 85027; 85610; 85730; 86850; 86900; 86901; 87641; 93005; 96372; 96374; 96375; 96376; 97161; 97165; 99284; G0237; J0690; J1100; J1650; J1885; J2001; J2250; J2270; J2405; J3010; J3370; J3490; J7040